=== PATIENT | female | born 1945 | race Caucasian/White ===

== ENCOUNTER 2019-10-02 11:51 | Emergency (ER) | payer MEDICARE, OTHER ==
[~2019-10-02] VITALS: Ht 157.5 cm; Wt 75.5 kg
[2019-10-02] MEDS ORDERED: KETOROLAC 30 MG/ML VIAL IVP ONE (12:00)
--- NOTE | 2019-10-02 12:06 | ED General ---
General Stated Complaint: SYNCOPAL Source of Information: Patient Exam Limitations: No Limitations History of Present Illness Date Seen by Provider: Oct 02, 2019 Time Seen by Provider: 11:59 Initial Comments To ER per EMS from Dr. 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 She had just received appropriately injection today. She has received this 3 times in the past without issue. Today however she reports that she felt nauseous, her blood pressure was low at 98 systolic and she was lowered to the floor. She did not hit her head. Now she feels back to normal with the exception of a headache. She is from [facility]. She denies any chest pain shortness of breath or palpitation now or at any time. She has a known cardiac murmur for which she sees a lapidarist in [place]. Timing/Duration: 1-2 Days Severity: Moderate Associated Systoms: No Chest Pain, No Cough Allergies and Home Medications Allergies Coded Allergies: morphine (Verified Allergy, Unknown, 10/02/19) streptomycin (Verified Allergy, Unknown, 10/02/19) Patient Home Medication List Home Medication List Reviewed: Yes Review of Systems Review of Systems Constitutional: see HPI EENTM: see HPI Respiratory: no symptoms reported Cardiovascular: no symptoms reported Genitourinary: no symptoms reported Musculoskeletal: no symptoms reported Skin: no symptoms reported Psychiatric/Neurological: No Symptoms Reported Hematologic/Lymphatic: No Symptoms Reported Immunological/Allergic: no symptoms reported Physical Exam Vital Signs Vital Signs - First Documented 10/02/19 11:51 Temp 36.5 Pulse 83 Resp 17 B/P (MAP) 130/65 (86) Pulse Ox 98 O2 Delivery Room Air Capillary Refill : Height, Weight, BMI Height: '" Weight: lbs. oz. kg; BMI Method: General Appearance: No Apparent Distress, WD/WN Eyes: Bilateral Eye Normal Inspection, Bilateral Eye PERRL, Bilateral Eye EOMI Neck: Full Range of Motion, Normal Inspection Respiratory: No Accessory Muscle Use, No Respiratory Distress Cardiovascular: Regular Rate, Rhythm, Normal Peripheral Pulses, Systolic Murmur Gastrointestinal: Non Tender, Soft Neurologic/Psychiatric: Alert, Oriented x3 Skin: Normal Color, Warm/Dry Progress/Results/Core Measures Suspected Sepsis SIRS Temperature: Pulse: Respiratory Rate: Laboratory Tests 10/02/19 12:05: White Blood Count 10.9 Blood Pressure / Mean: Laboratory Tests 10/02/19 12:05: Creatinine 1.10, Platelet Count 352, Total Bilirubin 0.3 Results/Orders Lab Results Laboratory Tests Test 10/02/19 12:05 Range/Units White Blood Count 10.9 4.3-11.0 10^3/uL Red Blood Count 5.24 4.35-5.85 10^6/uL Hemoglobin 15.3 11.5-16.0 G/DL Hematocrit 46 35-52 % Mean Corpuscular Volume 87 80-99 FL Mean Corpuscular Hemoglobin 29 25-34 PG Mean Corpuscular Hemoglobin Concent 34 32-36 G/DL Red Cell Distribution Width 14.9 H 10.0-14.5 % Platelet Count 352 130-400 10^3/uL Mean Platelet Volume 10.2 7.4-10.4 FL Neutrophils (%) (Auto) 62 42-75 % Lymphocytes (%) (Auto) 27 12-44 % Monocytes (%) (Auto) 7 0-12 % Eosinophils (%) (Auto) 3 0-10 % Basophils (%) (Auto) 1 0-10 % Neutrophils # (Auto) 6.8 1.8-7.8 X 10^3 Lymphocytes # (Auto) 2.9 1.0-4.0 X 10^3 Monocytes # (Auto) 0.8 0.0-1.0 X 10^3 Eosinophils # (Auto) 0.4 H 0.0-0.3 10^3/uL Basophils # (Auto) 0.1 0.0-0.1 10^3/uL Sodium Level 141 135-145 MMOL/L Potassium Level 4.1 3.6-5.0 MMOL/L Chloride Level 107 98-107 MMOL/L Carbon Dioxide Level 23 21-32 MMOL/L Anion Gap 11 5-14 MMOL/L Blood Urea Nitrogen 13 7-18 MG/DL Creatinine 1.10 0.60-1.30 MG/DL Estimat Glomerular Filtration Rate 49 BUN/Creatinine Ratio 12 Glucose Level 73 70-105 MG/DL Calcium Level 9.7 8.5-10.1 MG/DL Corrected Calcium 9.5 8.5-10.1 MG/DL Total Bilirubin 0.3 0.1-1.0 MG/DL Aspartate Amino Transf (AST/SGOT) 25 5-34 U/L Alanine Aminotransferase (ALT/SGPT) 27 0-55 U/L Alkaline Phosphatase 125 40-136 U/L Total Protein 8.2 6.4-8.2 GM/DL Albumin 4.3 3.2-4.5 GM/DL My Orders Orders - JAMIE MERA APRN Ketorolac Injection (Toradol Injection) (10/02/19 12:00) Cbc With Automated Diff (10/02/19 11:56) Comprehensive Metabolic Panel (10/02/19 11:56) Ed Iv/Invasive Line Start (10/02/19 11:56) Ct Head Wo (10/02/19 11:56) Ua Culture If Indicated (10/02/19 12:09) Medications Given in ED Current Medications Medications Dose Ordered Sig/Fr[place]ka Route Start Time Stop Time Status Last Admin Dose Admin Ketorolac Tromethamine 15 mg ONCE ONCE IVP 10/02/19 12:00 10/02/19 12:01 DC 10/02/19 12:12 15 MG Vital Signs/I&O 10/02/19 11:51 Temp 36.5 Pulse 83 Resp 17 B/P (MAP) 130/65 (86) Pulse Ox 98 O2 Delivery Room Air Capillary Refill : Departure Impression Primary Impression: Syncope Disposition: 01 HOME, SELF-CARE Condition: Stable Departure-Patient Inst. Decision time for Depature: 12:45 Patient Instructions: Syncope (Fainting) (DC) Add. Discharge Instructions: 1. Return to ER for any concerns 2. Follow-up with your doctor next week JAMIE MERA APRN Oct 02, 2019 12:06
[2019-10-02 12:14] LABS: BASOPHILS # (AUTO) 0.1 10^3/uL (0.0-0.1); BASOPHILS % (AUTO) 1 % (0-10); EOSINOPHILS # (AUTO) 0.4 10^3/uL (0.0-0.3); EOSINOPHILS % (AUTO) 3 % (0-10); HEMATOCRIT 46 % (35-52); HEMOGLOBIN 15.3 G/DL (11.5-16.0); LYMPHOCYTES # (AUTO) 2.9 X 10^3 (1.0-4.0); LYMPHOCYTES % (AUTO) 27 % (12-44); MEAN CORPUSCULAR HEMOGLOBIN 29 PG (25-34); MEAN CORPUSCULAR HGB CONC 34 G/DL (32-36); MEAN CORPUSCULAR VOLUME 87 FL (80-99); MEAN PLATELET VOLUME 10.2 FL (7.4-10.4); MONOCYTES # (AUTO) 0.8 X 10^3 (0.0-1.0); MONOCYTES % (AUTO) 7 % (0-12); NEUTROPHILS # (AUTO) 6.8 X 10^3 (1.8-7.8); NEUTROPHILS % (AUTO) 62 % (42-75); PLATELET COUNT 352 10^3/uL (130-400); RED CELL DISTRIBUTION WIDTH 14.9 % (10.0-14.5); WHITE BLOOD COUNT 10.9 10^3/uL (4.3-11.0)
--- NOTE | 2019-10-02 12:37 | Diagnostic Imaging Report ---
PROCEDURE: CT head without contrast. TECHNIQUE: Multiple contiguous axial images were obtained through the brain without the use of intravenous contrast. Auto Exposure Controls were utilized during the CT exam to meet ALARA standards for radiation dose reduction. INDICATION: Near syncope. Hypotension. COMPARISON: None. FINDINGS: Moderate generalized cerebral and cerebellar parenchymal volume loss is age appropriate. No intracranial hemorrhage, mass effect, hydrocephalus, or extra-axial fluid collections. No CT evidence of a territorial infarction. Osseous structures are intact. The visualized paranasal sinuses and mastoids are clear. IMPRESSION: No acute intracranial CT findings. Dictated by: Dictated on workstation # [id number]
[2019-10-02 12:38] LABS: ALBUMIN 4.3 GM/DL (3.2-4.5); BILIRUBIN,TOTAL 0.3 MG/DL (0.1-1.0); CALCIUM 9.7 MG/DL (8.5-10.1); CREATININE SERUM 1.1 MG/DL (0.60-1.30); POTASSIUM 4.1 MMOL/L (3.6-5.0); TOTAL PROTEIN 8.2 GM/DL (6.4-8.2)
[2019-10-02] MEDS: NS IV 500 ML 500 ML IV SCH ×2 (12:56→13:24)
[2019-10-02] MEDS ORDERED: NS IV 500 ML 500 ML IV SCH (13:15)
[2019-10-02 14:18] VITALS: BP 108/60
== END 2019-10-02 14:18 | disposition home or self-care (01) ==
LOC: ER 11:53
DX: R55 Syncope and collapse (principal); E11.9 Type 2 diabetes mellitus without complications; Z88.5 Allergy status to narcotic agent; Z88.1 Allergy status to other antibiotic agents
CPT/HCPCS: 36415; 70450; 80053; 85025; 96361; 96374